=== PATIENT | male | born 1980 | race African-American/Black ===

== ENCOUNTER 2016-11-16 13:50 | Outpatient (CLI) | payer SELFPAY ==
[~2016-11-16 13:50] MED LIST: FERRIC CARBOXYMALTOSE 750 MG in NORMAL SALINE 250 ML IV PRN; NORMAL SALINE 250 ML IV PRN
[2016-11-16 14:23] VITALS: BP 149/100
== END 2016-11-16 15:26 | disposition home or self-care (01) ==
LOC: II 13:50 → 5TH 14:04 → II 15:26
PROVIDERS: ATTEND Internal Medicine
PROC: 3E033GC Introduction of Other Therapeutic Substance into Peripheral Vein, Percutaneous Approach (ICD-10-PCS; principal; 2016-11-16)
DX: D50.9 Iron deficiency anemia, unspecified (principal); K90.9 Intestinal malabsorption, unspecified
CPT/HCPCS: 96375; J7050; J1439; 96367

== ENCOUNTER 2016-11-23 10:59 | Outpatient (CLI) | payer SELFPAY ==
[2016-11-23 11:44] VITALS: BP 136/93
== END 2016-11-23 11:51 | disposition home or self-care (01) ==
LOC: II 10:59 → 5TH 11:25 → II 11:51
PROVIDERS: ATTEND Internal Medicine
PROC: 3E033GC Introduction of Other Therapeutic Substance into Peripheral Vein, Percutaneous Approach (ICD-10-PCS; principal; 2016-11-23)
DX: D50.9 Iron deficiency anemia, unspecified (principal); K90.9 Intestinal malabsorption, unspecified
CPT/HCPCS: 96367; J7050; J1439; 96375

== ENCOUNTER 2019-07-14 06:22 | Emergency (ER) | payer SELFPAY ==
--- NOTE | 2019-07-14 08:18 | ER Document Report ---
ED GI Bleed / Rectal Pain - General Chief Complaint: Rectal Bleeding Stated Complaint: RECTAL DISCOMFORT AND BLEEDING Time Seen by Provider: 07/14/19 08:17 Notes: CHIEF COMPLAINT: Multiple complaints HPI: 39-year-old male with history of hemorrhoids and hypertension presenting to the emergency department complaining of some rectal bleeding with attempted bowel movement yesterday. Patient has seen a surgeon regarding the hemorrhoids and knows that he needs surgery on the hemorrhoids. States that they are uncomfortable at this point. No upper abdominal pain no fever. No cough no shortness of breath. Patient also states he has been off his blood pressure medications for several years states he used to take amlodipine. Patient was noted to be significantly hypertensive in triage. Patient denies chest pain. Patient states he did develop a sore throat yesterday and [place] did request that he get a COVID screening. ROS: See HPI - all other systems were reviewed and are otherwise negative Constitutional: no fever Eyes: no drainage, no blurred vision ENT: no runny nose, positive sore throat Cardiovascular: no chest pain Resp: no SOB, no cough GI: no vomiting, no diarrhea, no abdominal pain, positive bleeding hemorrhoid : no dysuria Integumentary: no rash Allergy: no hives Musculoskeletal: no extremity pain or swelling Neurological: no numbness/tingling, no weakness MEDICATIONS: I agree with the patient medications as charted by the RN. ALLERGIES: I agree with the allergies as charted by the RN. PAST MEDICAL HISTORY/PAST SURGICAL HISTORY: Reviewed and agree as charted by RN. SOCIAL HISTORY: Reviewed and agree as charted by RN. FAMILY HISTORY: No significant familial comorbid conditions directly related to patient complaint EXAM: Reviewed vital signs as charted by RN. CONSTITUTIONAL: Alert and oriented and responds appropriately to questions. Well-appearing; well-nourished HEAD: Normocephalic; atraumatic EYES: PERRL; Conjunctivae clear, sclerae non-icteric ENT: normal nose; no rhinorrhea; moist mucous membranes; pharynx without lesions noted, no uvula edema or deviation, no tonsillar hypertrophy, phonation normal NECK: Supple without meningismus; non-tender; no cervical lymphadenopathy, no masses CARD: RRR; no murmurs, no clicks, no rubs, no gallops; symmetric distal pulses RESP: Normal chest excursion without splinting or tachypnea; breath sounds clear and equal bilaterally; no wheezes, no rhonchi, no rales, pulse oximetry 98% on room air not hypoxic ABD/GI: Normal bowel sounds; non-distended; soft, non-tender, no rebound, no guarding; no palpable organomegaly or masses. Rectal: There is a small nonthrombosed hemorrhoid at approximately 9:00 with no visible active bleeding at this time. Good rectal tone. Hemoccult negative at this time. No blood in the rectal vault BACK: The back appears normal and is non-tender to palpation, there is no CVA t enderness EXT: Normal ROM in all joints; non-tender to palpation; no cyanosis, no effusions, no edema SKIN: Normal color for age and race; warm; dry; good turgor; no acute lesions noted NEURO: Moves all extremities equally; Motor and sensory function intact PSYCH: The patient's mood and manner are appropriate. Grooming and personal hygiene are appropriate. MDM: 39-year-old male with likely a small bleeding hemorrhoid that is internal will place patient on Anusol. Patient is significantly hypertensive. Has no chest pain or shortness of breath at this time will obtain screening labs, EKG. Will try to bring patient's diastolic pressure down approximately 20% utilizing IV medications for hypertensive urgency TRAVEL OUTSIDE OF THE [place] IN LAST 30 DAYS: No - Related Data Allergies/Adverse Reactions: No Known Allergies Allergy (Verified 07/14/19 06:52) Past Medical History - Social History Smoking Status: Current Every Day Smoker Frequency of alcohol use: Heavy Drug Abuse: None Family History: Reviewed & Not Pertinent Patient has homicidal ideation: No Physical Exam - Vital signs Vitals: Temp 97.4 F 07/14/19 06:52 Course - Re-evaluation Re-evalutation: 07/14/19 09:33 Diastolic blood pressure after 10 mg of labetalol still 135. Will give additional labetalol 07/14/19 11:25 Patient's diastolic pressure now is 110. He has no chest pain shortness of breath his lab work does not show acute emergent abnormalities. Will discharge home. He states he has a primary care provider for follow-up of his blood pressure. Will place him on amlodipine, hydrochlorothiazide - Vital Signs Vital signs: Temp Pulse Resp BP Pulse Ox 97.4 F 76 14 172/130 H 100 07/14/19 06:57 07/14/19 06:57 07/14/19 10:20 07/14/19 10:20 07/14/19 10:20 - Laboratory Result Diagrams: 07/14/19 09:00 07/14/19 09:00 Laboratory results interpreted by me: 07/14/19 07/14/19 07/14/19 09:00 09:00 09:00 WBC 3.6 L RBC 5.68 H Hgb 11.3 L Hct 36.4 L MCV 64 L MCH 19.9 L MCHC 31.0 L RDW 20.0 H Baso % (Auto) 2.3 H BUN 24 H Urine Protein 30 H Critical Care Note - Critical Care Note Total time excluding time spent on procedures (mins): 31 - multiple doses of IV blood pressure medications and reassessment Discharge - Discharge Clinical Impression: Hypertensive urgency, Hemorrhoids, internal, with bleeding Condition: Stable Disposition: HOME, SELF-CARE Instructions: High Blood Pressure, Requiring Treatment ([facility]), Hemorrhoids ([facility]) Additional Instructions: Take blood pressure medications in the morning as prescribed. Use the suppositories as prescribed. Follow-up with your surgeon with regards to the hemorrhoids, follow-up with your primary care provider regarding her blood pressure, it is very important that you take the blood pressure medications as you put yourself at significant risk of stroke or heart attack with your blood pressure being is elevated today as it was Prescriptions: Phenylephrine HCl [Anusol Suppository] 1 supp.rect [place] BID #28 supp.rect Hydrochlorothiazide 12.5 mg PO DAILY #30 tablet Amlodipine Besylate [Norvasc 10 mg Tablet] 10 mg PO DAILY #30 tablet
[2019-07-14] MEDS ORDERED: LABETALOL HCL INJ 20 MG/4 ML DISP.SYRIN IV ONE ×2 (08:23→09:33)
[2019-07-14] MEDS ORDERED: AMLODIPINE BESYLATE 10 MG TABLET PO ONE (08:27)
--- NOTE | 2019-07-14 09:05 | RADIOLOGY REPORT (SQ) ---
EXAM DESCRIPTION: CHEST 2 VIEWS IMAGES COMPLETED DATE/TIME: 07/14/2019 8:56 am REASON FOR STUDY: HTN urgency COMPARISON: None. EXAM PARAMETERS: NUMBER OF VIEWS: Two views. TECHNIQUE: PA and lateral views of the chest were obtained. RADIATION DOSE: NA LIMITATIONS: None. FINDINGS: LUNGS AND PLEURA: No consolidation, pleural effusion or pneumothorax. MEDIASTINUM AND HILAR STRUCTURES: No mediastinal or hilar contour abnormality. HEART AND VASCULAR STRUCTURES: The cardiac silhouette and pulmonary vasculature are within normal benítez its. BONES: No acute findings. HARDWARE: None in the chest. OTHER: No other finding. IMPRESSION: No acute cardiopulmonary process. TECHNICAL DOCUMENTATION: JOB ID: [id number] 2010 [employer]- All Rights Reserved Reading location - IP/workstation name: [email or web address]
[2019-07-14 09:17] LABS: ABSOLUTE BASOPHILS # (AUTO) 0.1 10^3/uL (0.0-0.2); ABSOLUTE EOSINOPHILS # (AUTO) 0.1 10^3/uL (0.0-0.6); ABSOLUTE LYMPHOCYTES (AUTO) 0.9 10^3/uL (0.5-4.7); ABSOLUTE MONOCYTES (AUTO) 0.4 10^3/uL (0.1-1.4); ABSOLUTE NEUT (AUTO) 2.1 10^3/uL (1.7-8.2); BASOPHILS % (AUTO) 2.3 % (0-2); EOSINOPHILS % (AUTO) 3.3 % (0-6); HEMATOCRIT 36.4 % (37.9-51.0); HEMOGLOBIN 11.3 g/dL (13.5-17.0); LYMPHOCYTES % (AUTO) 24.9 % (13-45); MEAN CORPUSCULAR HEMOGLOBIN 19.9 pg (27.0-33.4); PLATELET COUNT 198 10^3/uL (150-450); RED BLOOD COUNT 5.68 10^6/uL (4.35-5.55); SEGMENTED NEUTROPHILS % (AUTO) 59.5 % (42-78); TOTAL CELLS COUNTED % (AUTO) 100 %; WHITE BLOOD COUNT 3.6 10^3/uL (4.0-10.5)
[2019-07-14 09:18] LABS: APPEARANCE,URINE CLEAR; BILIRUBIN,URINE NEGATIVE (NEGATIVE); COLOR,URINE YELLOW; GLUCOSE, URINE NEGATIVE (NEGATIVE); KETONES,URINE NEGATIVE (NEGATIVE); LEUKOCYTE ESTERASE,URINE NEGATIVE (NEGATIVE); NITRITE,URINE NEGATIVE (NEGATIVE); PROTEIN,URINE 30 mg/dL (NEGATIVE); URINE SPECIFIC GRAVITY 1.014; UROBILINOGEN,URINE NEGATIVE mg/dL (<2.0)
[2019-07-14 09:20] LABS: MEAN CORPUSCULAR VOLUME 64 fl (80-97)
[2019-07-14 09:36] LABS: ALBUMIN 4.4 g/dL (3.5-5.0); ALKALINE PHOSPHATASE 65 U/L (38-126); ANION GAP 8 (5-19); ASPARTATE AMINO TRANSFERASE 28 U/L (17-59); BILIRUBIN,TOTAL 0.5 mg/dL (0.2-1.3); BLOOD UREA NITROGEN 24 mg/dL (7-20); CALCIUM 9.3 mg/dL (8.4-10.2); CARBON DIOXIDE 25 mmol/L (22-30); CHLORIDE 105 mmol/L (98-107); GLUCOSE 100 mg/dL (75-110); POTASSIUM 3.8 mmol/L (3.6-5.0); TOTAL PROTEIN 7.5 g/dL (6.3-8.2)
[2019-07-14 09:37] LABS: HYPOCHROMASIA 2+
[2019-07-14 09:38] LABS: ANISOCYTOSIS 3+; OVALOCYTES 2+; POIKILOCYTOSIS 2+
[2019-07-14 09:39] LABS: TARGET CELLS SLIGHT
[2019-07-14 09:40] LABS: SCHISTOCYTES SLIGHT
[2019-07-14 09:42] LABS: INTERNATIONAL RATION (INR) 1.08
[2019-07-14 09:43] LABS: PLATELET COMMENT ADEQUATE
[2019-07-14 11:42] VITALS: BP 165/110
--- NOTE | 2019-07-14 12:55 | EKG REPORT ---
SEVERITY:- BORDERLINE ECG - SINUS RHYTHM NONSPECIFIC ST-T CHANGES- INFERIOR LEADS : Confirmed by: Gabriel Finley MD 14-Jul-2019 12:54:18
== END 2019-07-14 11:50 | disposition home or self-care (01) ==
LOC: ER 06:22
DX: K64.8 Other hemorrhoids (principal); I16.0 Hypertensive urgency; I10 Essential (primary) hypertension; J02.9 Acute pharyngitis, unspecified; F17.200 Nicotine dependence, unspecified, uncomplicated; Z20.828 Contact with and (suspected) exposure to other viral communicable diseases
CPT/HCPCS: 93005; 96376; 99285; 96374; 36415; 87070; 87880; 85025; 85610; 87635; 80053; 81001; 84484; 71046; 93010; J3490